=== PATIENT | female | born 1960 | race Caucasian/White ===

== ENCOUNTER 2020-09-07 20:33 | Emergency (ER) | payer MEDICARE, OTHER ==
[~2020-09-07] VITALS: Ht 160 cm; Wt 77.1 kg
--- NOTE | 2020-09-07 20:36 | NUR ---
PT BIBRA C/O BACK PAIN S/P FALLING OUT OF THE TUB AND BACK SURGERY X3 WEEKS AGO. PT AAOX4 BREATHING EVENLY AND UNLABORED. PT ATTACHED TO MONITOR AND POX. PT PLACED ON 2L O2 VIA NC DUE TO HX OF COPD AND SATURATING 92%. MD AT BEDSIDE. PT GIVEN BLANKET AND CALL LIGHT WITHIN REACH
[2020-09-07] MEDS: HYDROCODONE/APAP 10/325MG TABLET PO ONE (20:50)
[2020-09-07] MEDS ORDERED: HYDROCODONE/APAP 10/325MG TABLET ONE (20:50)
[2020-09-07 21:13] VITALS: BP 125/88
--- NOTE | 2020-09-07 21:15 | NUR ---
Patient discharged to home in stable condition. Written and verbal after care instructions given. Patient verbalizes understanding of instruction.PT ambulatory with a steady gait
== END 2020-09-07 21:15 | disposition home or self-care (01) ==
LOC: ER 20:38
DX: G89.29 Other chronic pain (principal); M54.5 Low back pain; J44.9 Chronic obstructive pulmonary disease, unspecified

== ENCOUNTER 2020-11-12 12:56 | Emergency (ER) | payer MEDICARE, OTHER ==
[~2020-11-12] VITALS: Ht 160 cm; Wt 79.4 kg
--- NOTE | 2020-11-12 13:10 | NUR ---
The patient is [id number], from home, c/o chronic back pain. Rates back pain 8/10. Respiration regular and unlabored. Will continue to monitor the patient. Daughter at the bedside.
[2020-11-12] MEDS ORDERED: HYDROMORPHONE 1 MG/1 ML DISP.SYRIN IM ONE (14:30)
[2020-11-12] MEDS ORDERED: HYDROMORPHONE 1 MG/1 ML DISP.SYRIN ONE (14:40)
--- NOTE | 2020-11-12 16:30 | NUR ---
Patient discharged to home in stable condition. Written and verbal after care instructions given. Patient verbalizes understanding of instruction.
[2020-11-12 16:31] VITALS: BP 124/67
== END 2020-11-12 16:33 | disposition home or self-care (01) ==
LOC: ER 13:00
DX: M54.5 Low back pain (principal); G89.29 Other chronic pain; J44.9 Chronic obstructive pulmonary disease, unspecified
CPT/HCPCS: 72131; 96372; 99284; J1170

== ENCOUNTER 2023-01-03 11:33 | Emergency (ER) | payer MEDICARE, OTHER ==
[~2023-01-03] VITALS: Ht 160 cm; Wt 79.4 kg
[2023-01-03] MEDS ORDERED: LIDOCAINE 1%-EPI 1:100,000 20 ML VIAL TP ONE (12:00)
[2023-01-03] MEDS ORDERED: TDAP [DIPH/PERTUSSIS/TET] 0.5 ML VIAL IM ONE ×2 (12:00→12:09)
[2023-01-03] MEDS ORDERED: HYDROCODONE/APAP 5/325MG TABLET PO ONE (12:00)
[2023-01-03] MEDS ORDERED: LIDOCAINE 1%-EPI 1:100,000 20 ML VIAL ONE (12:08)
[2023-01-03] MEDS ORDERED: HYDROCODONE/APAP 5/325MG TABLET ONE (12:09)
[2023-01-03 14:36] VITALS: BP 130/85; TEMP 98.5; O2SAT 99
== END 2023-01-03 14:36 | disposition home or self-care (01) ==
LOC: ER 11:36
DX: S91.011A Laceration without foreign body, right ankle, initial encounter (principal); J44.9 Chronic obstructive pulmonary disease, unspecified; G89.29 Other chronic pain; Z60.2 Problems related to living alone; W20.8XXA Other cause of strike by thrown, projected or falling object, initial encounter; Y93.89 Activity, other specified; Y92.89 Other specified places as the place of occurrence of the external cause; Y99.8 Other external cause status
CPT/HCPCS: 12045; 90471; 90715; 99284; J3490